=== PATIENT | female | born 1940 | race Two or more races ===

== ENCOUNTER 2018-11-12 11:23 | Outpatient (CLI) | payer OTHER | END 2018-11-12 11:35 | disposition home or self-care (01) | LOC: NUCLEAR 11:23 | DX: M79.89 Other specified soft tissue disorders (principal); I73.9 Peripheral vascular disease, unspecified; Z01.810 Encounter for preprocedural cardiovascular examination; Z95.828 Presence of other vascular implants and grafts ==

== ENCOUNTER 2019-02-15 10:43 | Outpatient (CLI) | payer OTHER | END 2019-02-15 11:36 | disposition home or self-care (01) | LOC: TOM 10:43 | DX: K66.0 Peritoneal adhesions (postprocedural) (postinfection) (principal); K63.5 Polyp of colon ==

== ENCOUNTER 2021-03-15 08:33 | Outpatient (CLI) | payer OTHER | END 2021-03-15 08:43 | disposition home or self-care (01) | LOC: RAD 08:33 | PROVIDERS: ATTEND Ophthalmology | DX: R07.89 Other chest pain (principal) ==

== ENCOUNTER 2022-03-05 12:36 | Outpatient (CLI) | payer OTHER | END 2022-03-05 12:40 | disposition home or self-care (01) | LOC: SONOGRAMA 12:36 | PROVIDERS: ATTEND Internal Medicine | DX: N18.4 Chronic kidney disease, stage 4 (severe) (principal) ==

== ENCOUNTER 2022-08-26 08:39 | Outpatient (CLI) | payer OTHER | END 2022-08-26 08:54 | disposition home or self-care (01) | LOC: PPH VACUNA 08:39 | PROVIDERS: ATTEND Emergency Medicine Pediatric Emergency Medicine | DX: Z23 Encounter for immunization (principal) ==